=== PATIENT | female | born 1975 | race Caucasian/White ===

== ENCOUNTER 2017-07-14 05:09 | Inpatient (IN) | payer BC, OTHER ==
[2017-06-08 13:49] VITALS: BMI 22.0
--- NOTE | 2017-06-08 14:24 | PAT Medication Instructions ---
Service Date Jun 08, 2017. Current Home Medication List Cyanocobalamin (B-12 Compliance Injection), 1 SYR IM MONTHLY Dexlansoprazole (Dexilant), 1 TAB PO DAILY PRN for STOMACH ISSUES Ibuprofen Tab (Advil), 600 MG PO DAILY PRN for PRN Medication Instructions For Your Scheduled Surgery - Check with your surgeon for instructions for: Ibuprofen Tab (Advil), 600 MG PO DAILY PRN for PRN -Continue as directed: Cyanocobalamin (B-12 Compliance Injection), 1 SYR IM MONTHLY - Take the following medications the morning of surgery with a sip of water: Dexlansoprazole (Dexilant), 1 TAB PO DAILY PRN for STOMACH ISSUES (if needed) If you have any questions please call us at [phone] or [phone] or [phone]
[2017-06-08 15:15] LABS: BASO % 0.4 %; BASO ABS # 0.02 K/uL (0-0.2); EOS % 1.6 %; EOS ABS # 0.09 K/uL (0-0.5); HEMATOCRIT 38.2 % (37-47); HEMOGLOBIN 12.6 g/dL (12.0-16.0); LYMPH % 27.1 %; LYMPH ABS # 1.54 K/uL (1.2-3.4); MEAN CELL VOLUME 99.7 fL (80-100); MEAN CORPUSCULAR HEMOGLOBIN 32.9 pg (25-34); MONO % 6.5 %; MONO ABS # 0.37 K/uL (0.11-0.59); NEUT % 64.4 %; NEUT ABS # 3.66 K/uL (1.4-6.5); PLATELET COUNT 327 K/uL (130-400); RED CELL DISTRIBUTION WIDTH CV 12.1 % (11.5-14.5); RED CELL DISTRIBUTION WIDTH SD 44.2 fL (36.4-46.3); WHITE BLOOD COUNT 5.68 K/uL (4.8-10.8)
--- NOTE | 2017-06-29 12:10 | HISTORY & PHYSICAL EXAMINATION ---
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 The proposed surgical procedure is that of a sagittal split osteotomy for advancement and rotation with direct osseous fixation. HISTORY OF PRESENT ILLNESS: Roslyn is a healthy 41-year-old white female who lives in [place], [place] with her . She is 5 feet 8 inches tall and weighs 145 pounds. I have known Roslyn for approximately 5 years. During that time, I had worked with her very diligently to get her teeth lined up with multiple surgical procedures in order to allow us to perform the sagittal split osteotomy to align the lower jaw. She had a skeletal malocclusion, in which her lower jaw was small and deviated to the left side. As a result of this, the patient has a significant malocclusion, which prevents her from closing her teeth into a normal position. She in the past has had temporomandibular joint treatment in order to control her pain and jaw dysfunction, but it soon became evident that her problem was related to her skeletal malocclusion. She is under the care of a very competent special education kindergarten teacher by the name of Dr. Jovani Valdes, who practices in [place], [place]. Dr. Valdes and I have been working with Roslyn for the last 4 years. We had done maxillary expansion. We have removed the wisdom teeth and she is now ready for the sagittal split osteotomy. The plan is to advance and rotate the mandible to allow for a more meaningful and stable occlusion and then have Dr. Valdes finalized the orthodontic treatment once the skeletal bases are placed in appropriate position. We both feel that setting the stage for better temporomandibular joints and occlusal function will alleviate her pain and discomfort. As a result of her malocclusion, she is constantly biting her lips and cheeks due to the fact that the teeth do not meet properly. Despite having extensive orthodontic, this is a skeletal malocclusion and therefore, orthognathic surgery is indicated. I have reviewed with Mirtha and her on numerous occasions the fact that the surgical treatment is needed if she wants to have her jaw lined up into an appropriate position. We discussed all the risks and complications of this surgical procedure, which include but are not limited to pain, swelling, infection, poor osteotomy site development and the need for prolonged intramaxillary fixation. I did stress that this is a very rare phenomenon. We discussed the pain, swelling, and the possibility for blood transfusion, but again this is very rare. We did spend a lot of time discussing the anatomy of the inferior alveolar nerve and the fact that she could have either transient or permanent paresthesia to the lower lips, tongue and chin area. She is aware of all the risks and complications and understands that even though the orthognathic surgery will be completed at [facility] on July 07, she still has orthodontic that needs to be done by Dr. Valdes to stabilize her teeth and then she will need to be in retention for a long time thereafter. We also discussed the fact that despite lining up her teeth, we cannot guarantee that this will help with her temporomandibular joint discomfort such as popping and clicking, but we are hopeful that setting a stage for more stable harmonious foundation will have a dramatic effect. The risks and complications were fully reviewed and complete risk assessment can be found in the patient's chart. Overall, I find Roslyn to be a healthy individual, who has a very good understanding of the proposed outcome of the orthognathic surgery and is excited to have the surgery done on 07/07/2017 at [facility]. PAST MEDICAL HISTORY: Essentially noncontributory. She gives no history of any type of cardiac or respiratory problems. She is quite active and she does not get short of breath or dyspnea on exertion with doing many activities. 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 She has never told to have any type of specialized cardiac or respiratory tests. Except for some occasional migraines, she gives no history of any type of mental health, muscular or neurological problems. She gives no history of any type of endocrine metabolism problems, but she does state that at times, she had a low blood count and was given vitamin B12. The patient does complain of some temporomandibular joint problems, especially on the left side, where there is clicking and popping. She does have occasional pain, but she has an excellent range of motion. Radiographs within the temporomandibular joints look good. She does carry a history of acid reflux. She does have orthodontic braces in place and she has a cross bite on the lower right side. The patient does not smoke. She does not use any drugs. Alcohol very occasionally. She has no history of any type of kidney or liver problems. No history of any type of cancer. She does state that she does get nauseous from anesthesia and we will prophylactically treat her with antiemetic drugs such as Zofran and scopolamine patches. PAST SURGICAL HISTORY: Consists of uterine surgeries x3 and an oral surgical procedure, which I performed to remove wisdom teeth and to perform a maxillary osteotomy and shoulder surgeries in 2007 and most recently in 2017. ALLERGIES: THE PATIENT STATES THAT SHE IS ALLERGIC TO SULFA, AMOXICILLIN AND VICRYL SUTURES. MEDICATIONS: The patient does take a vitamin B12 injection. Overall, I find Roslyn to be a very healthy young lady, who is capable of undergoing the orthognathic surgical procedure as planned above. She has a good understanding of the outcomes of the surgery and the risks and complications inherited with the surgery. She was given explicit instructions both preoperatively and postoperatively and she was given prescriptions in the form of a pain medication in the form of Vicodin, Peridex mouth rinse, clindamycin antibiotics and Zofran for postoperative use. We will follow her in the office postoperatively as well as with Dr. Valdes to ensure a good outcome and good occlusal relationships. PHYSICAL EXAMINATION: HEAD: Normocephalic without any history of any head trauma, loss of consciousness, dizziness or vertigo. Except for some occasional migraines, she does not have any problems with headaches or neurological deficits. EARS: External auditory canals are very clear. No hearing deficits. No external pinna pathology. No pathology of the external auditory canals or the anatomy around the ears. EYES: Pupils are round and reactive to light and accommodation. Sclerae clear. Good ocular motion. Good range of motion noted. No double vision or difficulty with moving her eye. NOSE: Midline. Septum is midline. Polyps are not present. She has good air flow through the nose. The temporomandibular joints are unremarkable. She has a good range of motion, but at time she does get some pain in the temporomandibular joints with clicking and popping very rarely locking . Today, she had a very reproducible occlusion despite having very relatively unstable occlusion due to the skeletal malformation of the retrognathism and deviation to the left side. She has a crossbite as well as retrognathism. ORAL CAVITY: Within normal limits. Oral hygiene is excellent. Soft tissue around the teeth is very good. The tongue, floor of the mouth, posterior pharyngeal wall, hard and soft palate are all within normal limits. Orthodontic brackets are in place. Of interest is the patient had an implant placed in tooth #30 years ago and because of all the orthodontic movements, the implant is now in malposition. It is possible that once the orthognathic surgery is done that we will have her dentist remove the crown and see if a new abutment can be placed to allow for a proper occlusal relationship of tooth #30. The lips, the floor of the mouth and the pharyngeal area are all within normal limits. NECK: Supple. Full range of motion. Thyroid is not palpable. Trachea is midline. No paravertebral spasms. Good extension. Good flexation. Good rotation. No abnormal pulsations or masses noted. CARDIOVASCULAR: Normal sinus rhythm without any murmurs or gallops. LUNGS: Clear to auscultation and percussion. ABDOMEN: Soft. No organomegaly. No rebound phenomena noted. ORTHOPEDIC: Grossly intact. SKIN: Clear, dry, and free of pathology. NEUROLOGIC: Grossly intact. ORTHOPEDIC: Grossly intact. FAMILY HISTORY: Essentially noncontributory. She lives with her and children in the [place], [place] area. She and her own a [employer]. She does not smoke. She occasionally drinks and her family history is noncontributory and would not have any impact on the surgical procedure that we are planning. LABORATORY DATA: Routine laboratory studies were performed and all found to be within normal limits. She has a slight anemia. Her red blood cell count is 3.83 with a normal being 4.2. I do not feel that this would be of any significant for the surgery that we are planning. Again, the surgery is planned for July 07 at [facility]. We are planning 1-day admission after the orthognathic sagittal split osteotomy. I will follow up very carefully in my office as well with Dr. Valdes to ensure a positive outcome. The patient had ample time to ask questions. She was given prescriptions and instructions and the occlusal appliances fit very passively. Routine x-ray evaluation showed good positioning of the nerve and good thickness of the jaw bone with the proposed surgical procedure. JOYCE
[~2017-07-14] VITALS: Ht 172.7 cm; Wt 67.9 kg
[2017-07-14] VITALS (12 sets, daily range): BP systolic 105–139; BP diastolic 67–87; PULSE 79–118; TEMP 36.5–36.9; O2SAT 96–99; Ht 172.7 cm; Wt 67.9 kg
[~2017-07-14 05:09] MED LIST: CYAN1KIT3 IM; DEXL60CA4 PO; IBUP-103 PO
[2017-07-14] MEDS ORDERED: CLINDAMYCIN 600 MG/54 ML D5W IV SCH (06:00)
[2017-07-14] MEDS ORDERED: LACTATED RINGER'S 1000ML 1,000 ML IV SCH ×2 (06:00)
[2017-07-14] MEDS ORDERED: OXYMETAZOLINE HCL 0.05% NA SPR 15 ML BTL ONE (06:41)
[2017-07-14] MEDS ORDERED: LIDOCAINE HCL 2% JELLY 30 ML TUBE EXT ONE (06:41)
[2017-07-14] MEDS ORDERED: MIDAZOLAM HCL 1 MG/ML 2ML VIAL ONE (06:49)
[2017-07-14] MEDS ORDERED: FENTANYL CITRATE INJ 50 MCG/1 ML 2 ML VIAL ONE (06:49)
--- NOTE | 2017-07-14 06:56 | History & Physical Bridge Note ---
H&P Re-Evaluation Bridge Note: I have examined the patient, reviewed the History & Physical and in the interval since the performance of the History & Physical I have noted the following changes of clinical significance: No changes noted
[2017-07-14] MEDS ORDERED: HYDROCODONE/APAP 2.5MG/108MG ELIX 5 ML UDP PO PRN (07:00)
[2017-07-14] MEDS ORDERED: LORAZEPAM INJ 1 MG in SYRINGE 0 ML IV PRN (07:00)
[2017-07-14] MEDS ORDERED: SODIUM CHLORIDE 0.65% NA SOLN 45 ML (OCEAN) PRN (07:00)
[2017-07-14] MEDS ORDERED: OXYMETAZOLINE HCL 0.05% NA SPR 15 ML BTL PRN (07:00)
[2017-07-14] MEDS ORDERED: MoRPHine SULFATE 4 MG/ML 1 ML CARP\\VIAL IV PRN (07:00)
[2017-07-14] MEDS ORDERED: SCOPOLAMINE 1.5 MG TDSY TD ONE ×2 (07:05→07:15)
[2017-07-14] MEDS ORDERED: TRIAMCINOLONE ACET 0.1% OINT 15 GM TUBE ONE (07:06)
[2017-07-14] MEDS ORDERED: CHLORHEXIDINE GLUCONATE 0.12% 15 ML UDP ONE ×2 (07:07→07:08)
[2017-07-14] MEDS ORDERED: BUPIVACAINE/EPINEPHRINE 0.5% 1:200,000 1.8 ML CARP ONE (07:07)
[2017-07-14] MEDS ORDERED: DEXAMETHASONE SOD INJ 4 MG/ML VIAL ONE (07:28)
[2017-07-14] MEDS ORDERED: ONDANSETRON INJ 2 MG/ML 2 ML VIAL ONE ×2 (07:30→07:54)
[2017-07-14] MEDS ORDERED: PROPOFOL IV EMULSION 10 MG/ML 20 ML VIAL IV ONE ×2 (07:53→08:51)
[2017-07-14] MEDS ORDERED: ROCURONIUM BROMIDE 10 MG/ML 5 ML VIAL IV ONE (07:53)
[2017-07-14] MEDS ORDERED: LIDOCAINE HCL 2% 2 ML VIAL (20MG/ML) ONE (07:53)
[2017-07-14] MEDS ORDERED: NEOSTIGMINE METHYLSULFATE 5 MG/5 ML SYR ONE (07:54)
[2017-07-14] MEDS ORDERED: GLYCOPYRROLATE INJ 0.2 MG/ML VIAL ONE (07:54)
[2017-07-14] MEDS ORDERED: HYDROmorphone INJ 2 MG/ML SYR/VIAL ONE (08:11)
[2017-07-14] MEDS ORDERED: ATROPINE SULFATE 0.1 MG/ML 5ML SYR IV PRN (08:30)
[2017-07-14] MEDS ORDERED: EpHEDrine SULFATE INJ 50 MG/ML AMP IV PRN (08:30)
[2017-07-14] MEDS ORDERED: HYDROmorphone INJ 1 MG/ML SYR IV PRN (08:30)
[2017-07-14] MEDS ORDERED: ONDANSETRON INJ 2 MG/ML 2 ML VIAL IV PRN (08:30)
[2017-07-14] MEDS ORDERED: FENTANYL CITRATE INJ 50 MCG/1 ML 2 ML VIAL IV PRN (08:30)
[2017-07-14] MEDS ORDERED: LABETALOL HCL IV 5 MG/ML 20ML IV ONE (08:52)
--- NOTE | 2017-07-14 10:07 | [facility] Post Operative Brief Note ---
Immediate Operative Summary Operative Date Jul 14, 2017. Pre-Operative Diagnosis Mandibular Retrognathism Post-Operative Diagnosis Same as Preop Procedure(s) Performed Mandibular Sagittal Split Osteotomy Surgeon Dr. Delaney Toll Line Inspector Surgeon(s) Queenie MOHAMUDN, RN, CNOR, SERVICE TECHNICIAN Estimated Blood Loss 50 ml Findings retognathic [place] with deveation to the left Specimens None per Surgeon Drains none Anesthesia GA and local Complication(s) None Disposition Surgical ICU (She did very well , excellent fixation and jaws lined up very ideal)
--- NOTE | 2017-07-14 10:53 | DIAGNOSTIC IMAGING REPORT ---
ADDENDUM Addendum to the following report: Patient history of bilateral sagittal split mandibular osteotomies was provided. No fracture identified. Satisfactory alignment of the bilateral mandibular osteotomies with cannulated screws in place. Electronically signed by: Jose Manuel Gonsalves M.D. 07/14/2017 3:21 PM Dictated Date/Time: 07/14/2017 3:20 PM ORIGINAL REPORT MANDIBLE < 4 VIEWS HISTORY: 42 years-old Female Status post Orthognathic Surgery AP Mandibular and lat Jaw status post mandibular surgery COMPARISON: None available TECHNIQUE: 2 views of the mandible FINDINGS: Postoperative changes with internal fixation is seen within the bilateral mandibular rami fixating complete fractures. There is 2 mm fracture displacement on the right and 3 mm displacement on the left. Soft tissue swelling is noted about the jaw. Dental hardware noted. IMPRESSION: Postoperative changes compatible with internal fixation of bilateral mandibular rami fractures with minimal displacement. The above report was generated using voice recognition software. It may contain grammatical, syntax or spelling errors. Electronically signed by: Jose Manuel Gonsalves M.D. 07/14/2017 10:52 AM Dictated Date/Time: 07/14/2017 10:48 AM
--- NOTE | 2017-07-14 11:32 | Discharge Instructions ---
Discharge Instructions Date of Service Jul 14, 2017. Admission Reason for Admission: Mandibular Retrognathism Discharge Discharge Diagnosis / Problem: s/p retrognathic jaw correction Discharge Goals Goal(s): Decrease discomfort, Improve function, Increase independence Activity Recommendations Activity Limitations: per Instructions/Follow-up section Lifting Limitations: no more than 10 pounds Exercise/Sports Limitations: until after follow-up appointment May Resume Sexual Activity: after follow-up appointment Shower/Bathe: no limitations Driving or Machine Use: resume 3 days after discharge Weightbearing Status: Left weightbearing (as tolerated), Right weightbearing ( as tolerated) . Instructions / Follow-Up Instructions / Follow-Up [facility] GENERAL POST-OPERATIVE INSTRUCTIONS FOR PATIENTS HAVING JAW SURGERY POST-OP INSTRUCTIONS BLEEDING: Will be under control by the time you leave our operating room. Some oozing or blood-tinged saliva may persist for up to 24 hours. Should excessive bleeding occur call the office or Dr. Delaney. Expect nasal oozing for a few days. This also will occur after getting up or after you shower. PAIN: Is best controlled by the medications recommended. They are most effective when taken before the local anesthesia diminishes and normal sensation returns to the area. Do not take pain pills on an empty stomach. Narcotic pain medication such as Vicodin or Percocet may cause nausea, vomiting, drowsiness, dizziness, itching or constipation. If these side effects occur, discontinue the medication. You may take an alternative over the counter pain medication (Tylenol or Motrin ) as necessary or call our office for assistance. SWELLING: May occur immediately and increase gradually over 24-48 hours. Swelling from the surgical procedure will maximize at 48-72 hours. Ice packs applied externally to the area at 20 minute intervals throughout the day of surgery may help control swelling, but only use them if advised to by our office. Sleeping with the head of bed elevated above the level of the heart for the first two post-operative nights may tend to lessen swelling. NAUSEA: May result from a general anesthetic or the drugs prescribed for pain. Drinking a small glass of a carbonated beverage will generally control mild nausea. If not controlled, call the office. The Zofran ODT may be used as instructed. DIET: Soft foods and liquids will be required for 24-48 hours following surgery. Avoid hot, spicy foods. Do not smoke. Non-chewy foods are okay if you are using the elastic bands. Follow the instruction about what to eat and how to remove and replace your bands as instructed by Dr. Delaney. If your jaw is wired together -liquid diet ONLY. ORAL HYGIENE: Should not be neglected. [place] your teeth as usual and rinse with warm salt water after each meal beginning gently the night of surgery. Use Peridex twice a day. Other mouth rinses can be used to keep your mouth clean. ACTIVITY: Should be restricted to a minimum for the first 7 -10 days. Strenuous work or exercise may promote bleeding. If you have had a general anesthetic or sedation, we must require that you be accompanied home by a responsible adult and an adult stays with you until recovered from the effects of the anesthesia. Under no circumstances are you to drive a car for at least 24 hours. FEVER: After surgery it is normal for the body temperature to be slightly elevated for 24 hours. SIDE EFFECTS: Such as an ear ache, temporary ache of adjacent teeth, restricted mouth opening , stretching or cracking at the corners of the mouth or discoloration of the skin may occur postoperatively. These are temporary conditions that will improve as healing progresses. As a result of the surgery your bite will feel off, this is normal. Your lower and upper lip will also feel numb as a result of the surgery; over time this will subside. EMERGENCIES: In case of profuse bleeding, uncontrolled pain, persistent nausea or abnormal elevation of temperature, if you have any questions about these instructions or your surgery please call our office or Dr. Aviles cell phone. Our goal is to make this procedure as safe and pleasant as possible. Email Dr. Delaney---[email or web address] Phone Dr. Delaney after hours and weekends, Phone (office) [phone] Current Hospital Diet Patient's current hospital diet: Clear Liquid Diet, N/A Discharge Diet Recommended Diet: Clear Liquid Diet, Full Liquid Diet Fluid Restriction: None Diet Texture: Dental Soft (bite-sized) Liquid Consistency: Pudding Thick Procedures Procedures Performed: Mandibular Sagittal Split Osteotomy Pending Studies Studies pending at discharge: no Work Instructions Return To Work: after follow-up Lifting Limitations: no more than 10 pounds Additional Instructions: Start you antibiotic in the AM School Instructions Return To School: after follow-up Additional Instructions: None Medical Emergencies . Who to Call and When: Medical Emergencies: If at any time you feel your situation is an emergency, please call 911 immediately. . Non-Emergent Contact Non-Emergency issues call your: Surgeon (Call Dr Delaney if any Questions ) Contact Number: [phone] Dr Delaney Call Non-Emergent contact if: you have a fever, temperature is above 101.5, your pain is not controlled, your pain is worsening, your pain is unusual for you, your pain is concerning you, wound has increased redness, wound has increased pain, you have any medication questions . "Provider Documentation" section prepared by Alex Delaney. . Wiring Mechanic Recommendations Wiring Mechanic Recommendations: none VTE Core Measure Inpt VTE Proph given/why not?: Jorge Greenberg, [facility] [place] Drug Monitoring Program Search Results: patient reviewed within database Drug Monitoring Findings: nothing that we did not already know
--- NOTE | 2017-07-14 11:41 | OPERATIVE REPORT ---
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 POSTOPERATIVE DIAGNOSES: Same. PROCEDURE: Bilateral sagittal split osteotomies for advancement and rotation of the mandibular foramen. This was performed via the sagittal split osteotomy with direct fixation. DESCRIPTION OF PROCEDURE: After this patient was cleared to undergo general anesthesia, brought down to the operating room and placed under general anesthesia via nasotracheal intubation. After adequate anesthesia was obtained, the patient was prepped and draped in the usual manner for mandibular surgical procedure. The facial area was prepped and scrubbed in the usual manner and sterile dressings were used to isolate the facial area. The oral cavity was irrigated with Peridex mouth rinse and suctioned dry. An oropharyngeal throat pack was placed. Sterile dressings were placed around the facial area. At this time, the operation began. Prior to doing this, a time-out was taken to ensure that we had the correct patient and all instruments and oral antibiotics and other drugs were used prior to the surgery. After it was agreed that this indeed was the Roslyn Jones and the operation now began. At this time, local anesthesia was infiltrated into the lateral and medial tissues of the mandible on either side of the mandibular ramus. After an active period time for hemostasis and local anesthetic effect, an oropharyngeal throat pack was placed, the oral cavity was irrigated and the operation began. Using an electrocautery instrument, an incision was made approximately 1.5 cm in length along the external oblique ridge. The tissue was reflected in the usual manner to expose the inferior border of the mandible, the angle of the mandible, the external oblique ridge and then I carefully dissected posteriorly to evaluate and find the entrance of the neurovascular bundle as it entered the medial aspect of the mandible. After I was satisfied with the location, a retractor was used to hold it out of the way. I now used a large round clotilde and I smoothed out a very spinous process of the external oblique ridge. I now turned to a reciprocating saw. An osteotomy was now made parallel to the occlusal plane through the dense lingual cortical bone. I now used a [employer] point [employer] drill and made a series of holes along the external oblique ridge from the previously made osteotomy to an area between the first and second molars. I then angled the osteotomy inferiorly and with the use of the nasal blade made another osteotomy parallel to the long axis of the first and second molars through the facial bone as well as through the inferior border of the mandible. When this was complete, I made sure that all my cuts were made through the cortical bone. At this time, I used an electrocautery instrument to coagulate any bleeders. I then packed the area after irrigating it and turned my attention to the left side. Once again, the osteotomy on the left side was carried out in similar fashion. The tissues reflected in the usual manner with electrocautery instrument. The proper visualization was now achieved. The neurovascular bundle was found. The osteotomy on the lingual aspect of the mandible was carried out in the appropriate position. The sharp bony edge of the external oblique ridge was smoothed. The sphere point Aceves clotilde was used to make the osteotomy along the external oblique ridge and then the reciprocating blade was used to make an osteotomy parallel to the long axis of the first molar and the inferior border of the mandible. At this time with the use of small bone spreaders and osteotomes, I was able to achieve a sagittal split of the left side of the mandible with preservation of the neurovascular bundle. We had an excellent split. Once the soft tissues were dissected to allow for a passive free rotation and movement, I ensured that the nerve was well positioned. I now removed some bony interferences on the condylar fragment which would prevent the condyles were seating properly. At this time, the fragments were very smooth without any sharp bony spicules. I used a J periosteal elevator to elevate the inferior border of the mandible on the advancing and rotating side. I packed the area and turned my attention to the right side. Once again, the pressure dressing that was applied was now removed and with the use of small osteotomes and bone spreaders, I was able to achieve a very nice sagittal split osteotomy of the right side of the mandible. Preservation of the neurovascular bundle was achieved. Once again using a round clotilde, I was able to remove any bony interferences that would prevent the 2 fragments lying passively over each other. Because of the rotational effect, I needed to do a little bit more bony modification on this aspect of the mandible to accommodate the rotational effect from left to right. After this was achieved, we used a J periosteal elevator to free up the fragment. At this time, I turned my attention back to the right side. With the use of a small tonsillar clasp, I was able to hold the 2 fragments very passively and ensured that the condyle was well seated in the glenoid fossa. Being satisfied with this, an 11 blade was used to make a wesley incision to the cheek, a trocar was placed and now using a twist drill in the form of 1.5 mm, I was able to place 3 holes above the neurovascular bundle below the external oblique ridge and placed 3 screws. They were 8, 10 and 12 mm in length. Once this was done, I noted that I had excellent fixation of the fragment. I now turned my attention to the left side. Once again, the 2 bony fragments were lined up appropriately and held with a small hemostat. I was certain that we had good condylar positioning and good positioning of the nerve. Once again, the 11 blade was used to make a small wesley incision in the cheek, the trocar was placed. At this time, 3 holes were placed and screws in the length of two 10 and 12 were used to induce direct fixation. The bone in this site was slightly thicker. Once this was done, I removed the clasp and noted that the 2 fragments were lying very passively and very solid. At this time, I removed the intermaxillary fixation and that was achieved prior to placing the patient in direct osseous fixation. To ensure this, a small appliance was made out of a rubber material to ensure that the bite was properly positioned during the screw fixation. At this time, I removed the occlusal wafer as well as the intermaxillary fixation and judged the occlusion to be satisfactory and stable. The patient had no clicks, pops, or difficulty in opening the jaw. We had a good range of motion with a very stable occlusion. At this time, I turned my attention back to the right side. I irrigated the right mandibular areas, made sure that there were no perforations of the screws through the lingual cortical plate and then using a 3-0 chromic suture in both an interrupted and continuous fashion, I was able to get good closure of the osteotomy site on the right side. I now turned my attention to the left side. Once again, I checked the stability of the fragments and found them to be extremely stable. There were no perforations of the screws through the lingual cortical plate. The area was irrigated and sutured closed with the use of both a continuous and interrupted 3-0 chromic suture fashion. At this time, my nurse first nurse visitor service assistant Queenie Starks placed an orogastric tube and evacuated the contents of the oral cavity. She then cleansed the face and prepared with the use of a 6-0 nylon suture, the small wesley incisions in the cheek which were used to pass a trocar. Once this was accomplished, I came back, placed the patient into intermaxillary fixation which was quite stable and placed the buckle elastic around the front anterior upper and lower fixed teeth with a light dental elastic. At this time, the patient was allowed to recover in the usual manner. Upon full recovery, the patient was extubated. She was awake and alert and in good spirits. Prior to transferring her to the hospital litter to take her to the recovery room, we placed a pressure dressing on her face and help keep hematoma formation and to prevent any possible bleeding. At this time, the operation was done. The operation took approximately 3 hours. Operating surgeon was Dr. Delaney. The estimated blood loss was less than 75 mL. Nurse pharmaceutical assistant was Queenie Sierra. The operation was that of bilateral sagittal split osteotomies for advancement and rotation with the use of direct fixation. The patient tolerated the procedure well. She will spend the next hour or two in the recovery room and then we will be sending her to the intensive care unit for postoperative management. Depending on how she does over the next few hours, we will determine the next phase of her hospital stay. Overall, Roslyn tolerated the surgery and anesthesia quite well and I am anticipating a very good postoperative recovery. I attest to the content of the Intraoperative Record and any orders documented therein. Any exception s are noted below.
[2017-07-14] MEDS: ONDANSETRON INJ 2 MG/ML 2 ML VIAL IV PRN ×2 (11:57→17:07)
[2017-07-14] MEDS ORDERED: D5W AND 1/2NSS + 20MEQ KCL 1,000 ML IV SCH (12:00)
[2017-07-14] MEDS: DEXAMETHASONE INJ 6 MG in SYRINGE 0 ML IV SCH ×2 (12:03→18:41)
--- NOTE | 2017-07-14 12:24 | Anesthesiology Progress Note ---
Anesthesia Post Op Note Date & Time Jul 14, 2017 at 12:23 Vital Signs Pain Intensity: 0 Vital Signs Past 12 Hours Date Time Temp Pulse Resp B/P (MAP) Pulse Ox O2 Delivery O2 Flow Rate FiO2 07/14/17 11:00 70 12 112/78 99 Nasal Cannula 2 07/14/17 10:50 36.7 86 13 120/84 99 Nasal Cannula 2 07/14/17 10:40 93 18 122/73 95 Oxymask 10 07/14/17 10:30 96 16 121/76 98 Oxymask 10 07/14/17 10:22 36.6 97 16 123/75 100 Oxymask 10 07/14/17 05:46 36.9 79 18 115/78 98 Room Air Notes Mental Status: alert / awake / arousable, participated in evaluation Pt Amnestic to Procedure: Yes Nausea / Vomiting: adequately controlled Pain: adequately controlled Airway Patency, RR, SpO2: stable & adequate BP & HR: stable & adequate Hydration State: stable & adequate Anesthetic Complications: no major complications apparent
[2017-07-14 12:36] LABS: CREATININE 0.85 mg/dl (0.60-1.20)
--- NOTE | 2017-07-14 14:35 | Critical Care Consultation ---
Critical Care Consultation Date of Consultation: Jul 14, 2017. Attending Physician: Alex Delaney D.M.D. Reason for Consultation: Post op for mandibular sagittal split osteotomy History of Present Illness 41 year old female with mandibular retrognathism admitted to ICU post mandibular sagittal split osteotomy, by Dr. Delaney, to align the lower jaw. She was found to have a skeletal malocclusion, in which her lower jaw was small and deviated to the left side, thereby preventing her from closing her teeth into a normal position causing temporomandibular joint pain and jaw dysfunction. Procedures in the past, including maxillary expansion and wisdom tooth removal were not as effective and the patient, her dentist and Dr Delaney agreed to proceeding with the current surgery. As per Dr. Delaney, patient tolerated the procedure well, and has been transferred to ICU for management immediately post op. Currently patient resting in the room. She states that the numbness, though still present, seems to be wears off and she is feeling discomfort in her jaw and throat, rating it 6/10 severity. She is also complaining of a headache but no vision change or neck stiffness. She denies CP, dyspnea, palpitations. She is having some nausea, but no abdominal pain. Management plans were discussed with the patient and her . Past Medical/Surgical History Past Medical history: - GERD Past Surgical history: - Uterine surgeries x3 - Oral surgical procedure to remove wisdom teeth and to perform a maxillary osteotomy - Shoulder surgeries in 2006 and 2016 Family History Noncontributory. Social History Smoking Status: Never Smoker Smokeless Tobacco Use: No Alcohol Use: socially Drug Use: none Marital Status: Housing Status: lives with family Occupation Status: employed Allergies Coded Allergies: Penicillins (Verified Allergy, Intermediate, HIVES, 07/14/17) Sulfa Antibiotics (Verified Allergy, Intermediate, HIVES, 07/14/17) Uncoded Allergies: VICRYL SUTURES (Allergy, Unknown, NON HEALING SUTURE LINE, 06/08/17) Home Medications Scheduled Cyanocobalamin (B-12 Compliance Injection), 1 SYR IM MONTHLY Scheduled PRN Dexlansoprazole (Dexilant), 1 TAB PO DAILY PRN for STOMACH ISSUES Ibuprofen Tab (Advil), 600 MG PO DAILY PRN for PRN Current Inpatient Medications Current Inpatient Medications Medications (Trade) Dose Ordered Sig/Bhavin Route Start Time Stop Time Status Last Admin Dose Admin Clindamycin Phosphate 54 ml @ 100 mls/hr PREOP IV 07/14/17 06:00 07/14/17 18:00 07/14/17 07:15 100 MLS/HR Lactated Ringer's 1,000 ml @ 100 mls/hr Q10H IV 07/14/17 06:00 07/14/17 15:59 07/14/17 06:07 100 MLS/HR Lactated Ringer's 1,000 ml @ 15 mls/hr Q24H IV 07/14/17 06:00 07/15/17 05:59 Potassium Chloride/Dextrose/ Sod Cl 1,000 ml @ 125 mls/hr Q8H IV 07/14/17 12:00 08/13/17 11:59 07/14/17 12:03 125 MLS/HR Ketorolac Tromethamine (Toradol Inj) 30 mg Q6H IV. 07/14/17 14:00 07/19/17 13:59 Dexamethasone Sodium Phosphate 6 mg/Syringe 1.5 ml @ 1 mls/min Q6 IV 07/14/17 12:00 08/13/17 11:59 07/14/17 12:03 1 MLS/MIN Oxymetazoline HCl (Afrin 0.05% Nasal [place]) 2 sprays Q4H PRN NA 07/14/17 07:00 08/13/17 06:59 Ondansetron HCl (Zofran Inj) 4 mg Q6H PRN IV 07/14/17 07:00 08/13/17 06:59 07/14/17 11:57 4 MG Lorazepam 1 mg/ Syringe 0.5 ml @ 1 mls/min Q4H PRN IV 07/14/17 07:00 08/13/17 06:59 Chlorhexidine Gluconate (Peridex Oral Soln) 15 ml BID MT 07/14/17 21:00 08/13/17 20:59 Sodium Chloride ([place] Nasal [place]) 2 sprays Q2H PRN NA 07/14/17 07:00 08/13/17 06:59 Acetaminophen/ Hydrocodone Bitart (Lortab Elixir) 10 ml Q3H PRN PO 07/14/17 07:00 07/28/17 06:59 Morphine Sulfate (MoRPHine SULFATE INJ) 2 mg Q1H PRN IV 07/14/17 07:00 07/28/17 06:59 07/14/17 11:29 2 MG Clindamycin Phosphate 600 mg/ Dextrose 54 ml @ 100 mls/hr Q8H IV 07/14/17 20:00 07/15/17 19:59 Miscellaneous (Remove Transderm-Scop Patch) 1 ea Q48H N/A 07/16/17 07:15 07/16/17 07:16 Physical Exam Date Time Temp Pulse Resp B/P (MAP) Pulse Ox O2 Delivery O2 Flow Rate FiO2 07/14/17 13:00 118 16 125/87 (100) 98 Nasal Cannula 2.0 07/14/17 12:45 98 15 117/80 (92) 99 Nasal Cannula 2.0 07/14/17 12:30 102 14 119/82 (94) 99 Nasal Cannula 2.0 07/14/17 12:15 111 18 123/67 (85) 98 Nasal Cannula 2.0 07/14/17 12:00 95 16 105/83 (90) 99 Nasal Cannula 2.0 07/14/17 12:00 Nasal Cannula 2.0 07/14/17 11:46 36.9 84 14 122/70 (87) 98 Nasal Cannula 2.0 07/14/17 11:00 70 12 112/78 99 Nasal Cannula 2 07/14/17 10:50 36.7 86 13 120/84 99 Nasal Cannula 2 07/14/17 10:40 93 18 122/73 95 Oxymask 10 07/14/17 10:30 96 16 121/76 98 Oxymask 10 07/14/17 10:22 36.6 97 16 123/75 100 Oxymask 10 07/14/17 05:46 36.9 79 18 115/78 98 Room Air GENERAL: alert, well appearing, thin, lying in bed, no acute distress, non- toxic HEAD: NC/AT EYES: Normal sclera and conjunctiva OROPHARYNX: Unable to assess oropharynx, elastics holding jaw closed, but patient able to talk with minimal jaw movement. Lips swollen, but without external trauma. NECK: Supple, no adenopathy, non-tender LUNGS: Clear to auscultation. Normal chest wall mechanics, good air entry. No crepitations, crackles, or wheezes HEART: RRR, S1 and S2 normal, no murmurs appreciated ABDOMEN: Soft, non-tender, normo-active bowel sounds, no masses, no rebound or guarding. SKIN: Warm, pink, dry. No erythema, rashes, or bruising. EXTREMITIES: Grossly normal. Moving all 4 limbs, strength 5/5. No pitting edema. Calves non tender. NEURO: Alert, Ox3. No focal deficits. Normal speech. PSYCH: Mood and affect appropriate. Laboratory Results Last 24 Hours Test 07/14/17 11:55 Creatinine 0.85 mg/dl Est Creatinine Clear Calc Drug Dose 86.1 ml/min Estimated GFR () 97.3 Estimated GFR (Non- 83.9 Diagnostic Results MANDIBLE < 4 VIEWS HISTORY: 42 years-old Female Status post Orthognathic Surgery AP Mandibular and lat Jaw status post mandibular surgery COMPARISON: None available TECHNIQUE: 2 views of the mandible FINDINGS: Postoperative changes with internal fixation is seen within the bilateral mandibular rami fixating complete fractures. There is 2 mm fracture displacement on the right and 3 mm displacement on the left. Soft tissue swelling is noted about the jaw. Dental hardware noted. IMPRESSION: Postoperative changes compatible with internal fixation of bilateral mandibular rami fractures with minimal displacement. Assessment & Plan Reason critically ill: 42 year old female presents post-op from mandibular sagittal split osteotomy for management, and observation for airway compromise. Neuro - CAM negative. Neurologically in tact - Analgesia: Lortab, Toradol, morphine CV - Vitals HR 90-120, BP 110-120s - IVF: D5NS+20mEQ KCl @ 125cc/hr - Tachycardic, but hemodynamically stable Resp - 2L O2 via NC, wean as tolerated - Dexamethasone 6mg q6h to reduce post op/airway swelling GI/Nutrition - Diet: clear liquid diet - Zofran PRN - Monitor I/O Renal/ - Voiding. No Melvin necessary - Check BMP tomorrow ID - Antibiotics: IV clindamycin - Peridex mouth rinse Endo - No history of DM or thyroid disease Heme - H/H stable pre op. Trend CBC Access/Line - 2 peripheral IV lines VTE Prophylaxis - SCDs Resident Physician Supervision Note: I was present with Dr. Martinez during the history and exam. I discussed the case with the resident and agree with the findings and plan as documented in the note. Any exceptions or clarifications are listed here: [None] Documented By: Yunior Logan Resident Tracking Resident Involvement: Resident Care Provided Care Provided: Adult Hospital Medicine
[2017-07-14] MEDS: KETOROLAC TROMETHAMINE 30 MG/ML VIAL IV. SCH ×2 (14:44→19:27)
[2017-07-14] MEDS ORDERED: INFLUENZA ADMINISTRATION CHARGE ONE (14:45)
[2017-07-14] MEDS ORDERED: INFLUENZA VIRUS QUAD VACCINE 0.5 ML SYR IM. ONE (14:45)
[2017-07-14] MEDS ORDERED: CLINDAMYCIN IV 600 MG in DEXTROSE 5% 50ML 50 ML IV SCH (20:00)
--- NOTE | 2017-07-14 20:53 | DISCHARGE SUMMARY ---
DISCHARGE SUMMARY AND FINAL PROGRESS NOTE HISTORY: Roslyn is a healthy 42-year-old white female who was admitted to [facility] this morning for a surgical procedure on her mandible due to a severe mandibular deficiency and retrognathism with deviation towards the left side. Her chief complaint was inability to close her jaws into a normal manner and excessive temporomandibular joint and facial pain due to the traumatic malocclusion. She underwent approximately 2 years of orthodontics and even had a maxillary osteotomy to widen the upper jaw in the past. It is at this time that she was cleared to undergo the general anesthesia for the performance of a bilateral sagittal split osteotomy of the lower jaw. She was taken to the operating room at approximately 7:15 this morning and under general anesthesia, I performed bilateral sagittal split osteotomy and then directed refixated the bony fragments. Postoperatively, Roslyn did extremely well, she had a very stable postoperative occlusion with good occlusal opening without any clicks, pops or deviations of the temporomandibular joints. Postoperative radiographs were taken and demonstrated good condylar position as well as interfragment position. Her occlusion was extremely stable and reproducible. She was subsequently transferred to the recovery room. In the recovery room, she was doing very well. She did not have any problems with any excessive swelling or swallowing and just had some very mild nausea which was controlled with a scopolamine patch and other medications. From the recovery room, she was transferred to the intensive care unit. I first evaluated her in the intensive care unit at approximately 2:00 p.m. on the afternoon of the surgery. She was doing surprisingly well. She was up in her bed, she was drinking fluids without any problems. For swelling, I would consider to be very light to moderate. Her occlusion was stable. She was telling me that she was starting to get feeling back in her face and lip areas. She had good control of her occlusion. One interdental elastic was placed in a box fashion in the anterior portion of her maxilla and mandible. I reviewed the x-rays and these show excellent interfragment positioning and good temporomandibular joint relationship. She asked me if she continues to do well, which she will be able to be discharged later this evening. I told her that I will be coming back for postoperative rounds at approximately 7:30 p.m. At 7:30 p.m., I evaluated Roslyn once again. She was doing very well, had no further bouts of nausea has voided and is in very good spirits, her swelling in my opinion has even decreased. Her occlusion is stable. I reviewed with the nursing staff her medical condition and they felt that she was doing extremely well and I then discussed with she and her the fact that I could discharge them if they wanted to go home this evening. They both felt very comfortable in leaving this evening and Roslyn was quite enthusiastic about going to her own house. At this time, I reviewed the postoperative care of the orthognathic surgical procedure which include dietary care, functional rubber band placement, oral hygiene care and dietary care. Roslyn, in my opinion has an extremely good understanding of how to take care of herself and what to expect. They have my phone number and email in case there are any problems or questions that arise. The patient already has her antibiotics in the form of clindamycin at home as well as the Vicodin pain medication and the Peridex mouth rinse and Zofran for any nausea. She understands the importance of good oral hygiene care and dietary care. It is at this time that I feel very comfortable in discharging Roslyn in care of her from [facility]. Prior to being discharged, she will be given her final dose of clindamycin antibiotic as well as a dose of Toradol pain medication. The patient will be followed by me in my [place] office with her first postoperative appointment being on 07/20/2017. The patient knows that if she should have any questions or concerns to call me or email me at once. Overall, Roslyn did extremely well from the surgery, she tolerated the anesthesia and the surgical procedure without any problems. She had minimal blood loss. The x-rays showed in good interfragment positioning. To date, she has a very uneventful postoperative recovery. It is at this time that she is stable for discharge and to be followed by me in my office on Thursday07/20/2017.
[2017-07-14] MEDS ORDERED: CHLORHEXIDINE GLUCONATE 0.12% 480 ML MT SCH (21:00)
== END 2017-07-14 20:35 | disposition home or self-care (01) | DRG 134 ==
LOC: C.ACU 05:09 → C.MSICU 05:35 → ENRESERV 11:02 → CMPBEDREQ 11:37
PROVIDERS: ADMIT Dentist Oral and Maxillofacial Surgery; ATTEND Dentist Oral and Maxillofacial Surgery
PROC: 0N8V0ZZ Division of Left Mandible, Open Approach (ICD-10-PCS; principal; 2017-07-14 07:15)
PROC: 0N8T0ZZ Division of Right Mandible, Open Approach (ICD-10-PCS; principal; 2017-07-14 07:15)
DX: M26.02 Maxillary hypoplasia (principal); K21.9 Gastro-esophageal reflux disease without esophagitis